=== PATIENT | male | born 1960 | race Caucasian/White ===

== ENCOUNTER 2018-03-30 11:35 | Emergency (ER) | payer MEDICAID, OTHER ==
[~2018-03-30] VITALS: Ht 182.9 cm; Wt 110.2 kg
[2018-03-30 12:41] VITALS: BP 142/96
== END 2018-03-30 13:24 | disposition home or self-care (01) ==
LOC: ER 11:35
DX: M79.601 Pain in right arm (principal); I10 Essential (primary) hypertension; E78.00 Pure hypercholesterolemia, unspecified; F17.210 Nicotine dependence, cigarettes, uncomplicated
CPT/HCPCS: 73060; 93005

== ENCOUNTER 2018-10-29 06:04 | Emergency (ER) | payer MEDICAID ==
[~2018-10-29] VITALS: Ht 182.9 cm; Wt 113.4 kg
[2018-10-29 07:27] VITALS: BP 154/101
[2018-10-29] MEDS ORDERED: methylPREDNISolone SOD SUCC 125 MG/2 ML VL IM ONE (07:45)
[2018-10-29] MEDS ORDERED: KETOROLAC TROMETH 60MG/2ML VIAL IM ONE (07:45)
== END 2018-10-29 09:34 | disposition home or self-care (01) ==
LOC: ER 06:04
DX: M10.9 Gout, unspecified (principal); M17.12 Unilateral primary osteoarthritis, left knee; E78.5 Hyperlipidemia, unspecified; I10 Essential (primary) hypertension; F17.210 Nicotine dependence, cigarettes, uncomplicated; Z86.39 Personal history of other endocrine, nutritional and metabolic disease
CPT/HCPCS: 73562; 96372; 99283; J1885; J2930

== ENCOUNTER 2019-02-09 09:35 | Emergency (ER) | payer MEDICAID ==
[~2019-02-09] VITALS: Ht 182.9 cm; Wt 111.1 kg
[2019-02-09] MEDS ORDERED: methylPREDNISolone SOD SUCC 125 MG/2 ML VL IV ONE (10:15)
[2019-02-09] MEDS ORDERED: LIDOCAINE VISCOUS 2% 15ML UD MT ONE (10:15)
[2019-02-09] MEDS ORDERED: cefTRIAXone 1GM/50ML D5W 50 ML IV ONE (10:15)
[2019-02-09 10:27] VITALS: BP 135/86
== END 2019-02-09 11:58 | disposition home or self-care (01) ==
LOC: ER 09:39
DX: J03.90 Acute tonsillitis, unspecified (principal); E78.00 Pure hypercholesterolemia, unspecified; I10 Essential (primary) hypertension
CPT/HCPCS: 70450; 72125; 93005; 96365; 96375; 99284; J0696; J2930

== ENCOUNTER 2019-05-31 17:36 | Emergency (ER) | payer MEDICAID ==
[2019-05-31] MEDS ORDERED: ACETAMINOPHEN 500 MG TAB PO ONE (18:30)
[2019-05-31] MEDS ORDERED: HYDROcodone-ACET 5/325MG TAB PO ONE (20:45)
[2019-05-31 22:51] VITALS: BP 124/84
== END 2019-05-31 23:42 | disposition home or self-care (01) ==
LOC: ER 17:36
DX: S82.832A Other fracture of upper and lower end of left fibula, initial encounter for closed fracture (principal); E78.5 Hyperlipidemia, unspecified; I10 Essential (primary) hypertension; E07.9 Disorder of thyroid, unspecified; W00.0XXA Fall on same level due to ice and snow, initial encounter; Y93.89 Activity, other specified; Y92.89 Other specified places as the place of occurrence of the external cause; Y99.8 Other external cause status
CPT/HCPCS: 29505; 73590; 73610

== ENCOUNTER 2020-12-02 14:19 | Emergency (ER) | payer MEDICAID, MEDICARE ==
[~2020-12-02] VITALS: Ht 182.9 cm; Wt 113.4 kg
[2020-12-02 14:20] VITALS: BP 103/67
== END 2020-12-02 16:48 | disposition left against medical advice (07) ==
LOC: ER 14:19
DX: S63.502A Unspecified sprain of left wrist, initial encounter (principal); M19.032 Primary osteoarthritis, left wrist; E78.5 Hyperlipidemia, unspecified; I10 Essential (primary) hypertension; W18.09XA Striking against other object with subsequent fall, initial encounter; Y93.01 Activity, walking, marching and hiking; Y92.89 Other specified places as the place of occurrence of the external cause; Y99.8 Other external cause status
CPT/HCPCS: 73110

== ENCOUNTER 2021-08-11 05:23 | Emergency (ER) | payer MEDICARE, OTHER ==
[~2021-08-11] VITALS: Ht 182.9 cm; Wt 113.9 kg
[2021-08-11] MEDS ORDERED: KETOROLAC TROMETH 60MG/2ML VIAL IM ONE (07:30)
[2021-08-11 07:39] VITALS: BP 141/103
[2021-08-11] MEDS ORDERED: IBUP800T27 PO (07:40)
== END 2021-08-11 08:48 | disposition home or self-care (01) ==
LOC: ER 05:23
DX: S93.401A Sprain of unspecified ligament of right ankle, initial encounter (principal); S93.601A Unspecified sprain of right foot, initial encounter; M19.071 Primary osteoarthritis, right ankle and foot; I10 Essential (primary) hypertension; E78.5 Hyperlipidemia, unspecified; E03.9 Hypothyroidism, unspecified; F17.210 Nicotine dependence, cigarettes, uncomplicated; Z79.1 Long term (current) use of non-steroidal anti-inflammatories (NSAID); X58.XXXA Exposure to other specified factors, initial encounter; Y93.89 Activity, other specified; Y92.89 Other specified places as the place of occurrence of the external cause; Y99.8 Other external cause status
CPT/HCPCS: 73610; 73630; 96372; 99284; J1885

== ENCOUNTER 2022-11-26 07:59 | Emergency (ER) | payer OTHER ==
[~2022-11-26] VITALS: Ht 182.9 cm; Wt 111.0 kg
[~2022-11-26 07:59] MED LIST: IBUP-1456 PO
[2022-11-26 08:09] VITALS: BP 113/77
[2022-11-26 09:58] LABS: Urine Bacteria NONE SEEN /hpf (None Seen); Urine Blood Negative /uL (Negative); Urine Hyaline Cast FEW /lpf (0 - 2); Urine Mucus FEW (None Seen); Urine Specific Gravity 1.023 (1.001-1.035); Urine WBC 5 /hpf (0 - 3)
[2022-11-27] MEDS ORDERED: IOHEXOL 300 MG/ML 100ML BOTTLE IJ ONE (07:21)
== END 2022-11-26 09:37 | disposition left against medical advice (07) ==
LOC: ER 07:59
DX: G45.9 Transient cerebral ischemic attack, unspecified (principal); I48.91 Unspecified atrial fibrillation; E78.5 Hyperlipidemia, unspecified; I10 Essential (primary) hypertension; F17.210 Nicotine dependence, cigarettes, uncomplicated; F12.90 Cannabis use, unspecified, uncomplicated
CPT/HCPCS: 81001; 93005

== ENCOUNTER 2022-11-27 04:05 | Emergency (ER) | payer OTHER ==
[~2022-11-27] VITALS: Ht 182.9 cm; Wt 111.4 kg
[2022-11-27 04:44] LABS: Basophils # (auto) 0.1 10 ^3/uL (0-0.2); Basophils % (auto) 0.7 % (0.0-2.0); Eosinophils # (auto) 0.3 10 ^3/uL (0-0.8); Eosinophils % (auto) 3.2 % (0.0-7.0); Hematocrit 36.6 % (41.0-53.0); Hemoglobin 12.5 g/dL (13.5-17.5); Lymphocytes # (auto) 2.4 10 ^3/uL (0.4-5.4); Lymphocytes % (auto) 24.8 % (10.0-50.0); Mean Corpuscular Hemoglobin 29.8 pg (28.0-32.0); Mean Corpuscular Hgb Conc. 34.2 g/dL (32.0-36.0); Mean Corpuscular Volume 87.2 fL (80.0-100.0); Monocytes # (auto) 0.8 10 ^3/uL (0-1.3); Monocytes % (auto) 8.1 % (0.0-12.0); Neutrophils # (auto) 6.1 10 ^3/uL (1.6-8.6); Neutrophils % (auto) 63.2 % (37.0-80.0); Red Cell Distribution Width 15.1 % (11.8-14.3); White Blood Cell 9.6 10^3/uL (4.4-10.8)
[2022-11-27 04:51] LABS: Albumin 3.4 g/dL (3.4-5.0); Calcium 9.2 mg/dL (8.5-10.1); INR 1.04 (0.9-1.15); Partial Thromboplastin Time 29.3 SEC (24.5-34.5); Potassium 3.8 mmol/L (3.5-5.1)
[2022-11-27 04:53] LABS: Total Protein 7.9 g/dL (6.4-8.2)
[2022-11-27] MEDS ORDERED: IOHEXOL 350 MG/ML 100ML IJ ONE (08:37)
[2022-11-27 09:58] VITALS: BP 128/88
== END 2022-11-27 11:16 | disposition left against medical advice (07) ==
LOC: ER 04:05
DX: I71.012 Dissection of descending thoracic aorta (principal); I48.91 Unspecified atrial fibrillation; E78.5 Hyperlipidemia, unspecified; I10 Essential (primary) hypertension; M19.90 Unspecified osteoarthritis, unspecified site; F15.90 Other stimulant use, unspecified, uncomplicated; Z98.890 Other specified postprocedural states; Z87.891 Personal history of nicotine dependence
CPT/HCPCS: 36415; 70491; 71045; 71260; 74177; 80053; 83880; 84484; 85025; 85610; 85730; 93005; 99291; Q9967